=== PATIENT | female | born 1955 ===

== ENCOUNTER 2025-01-28 13:22 | Observation (INO) | payer MEDICARE ==
[~2025-01-28] VITALS: Ht 157.5 cm; Wt 69.7 kg
[2025-01-28 14:53] LABS: BASOPHILS ABSOLUTE AUTO 0.13 K/mm3 (0.00-0.23); BASOPHILS PERCENT AUTO 1 % (0-2); EOSINOPHILS ABSOLUTE AUTO 0.04 K/mm3 (0.00-0.68); EOSINOPHILS PERCENT AUTO 0 % (0-6); Hemoglobin 12.1 g/dL (11.5-16.0); IMMATURE GRAN ABSOLUTE AUTO 0.54 K/mm3 (0.00-0.10); IMMATURE GRAN PERCENT AUTO 3 % (0-1); LYMPHOCYTES ABSOLUTE AUTO 1.83 K/mm3 (0.84-5.20); LYMPHOCYTES PERCENT AUTO 9 % (21-46); MONOCYTES ABSOLUTE AUTO 1.26 K/mm3 (0.16-1.47); MONOCYTES PERCENT AUTO 6 % (4-13); Mean Platelet Volume 9.2 fL (9.1-12.4); NEUTROPHILS ABSOLUTE AUTO 16.13 K/mm3 (1.96-9.15); NEUTROPHILS PERCENT AUTO 81 % (41-73); NRBC ABSOLUTE 0.04 K/mm3 (0.00-0.02); NRBC Auto 0.2 /100 WBC (0.0-0.2); Platelet Count 368 K/mm3 (150-400); White Blood Cell Count 19.93 K/mm3 (4.00-11.30)
[2025-01-28 15:11] LABS: Magnesium, Blood 2.8 mg/dL (1.6-2.4)
[2025-01-28 15:23] LABS: Albumin, Blood 1.8 g/dL (3.4-5.0); Albumin/Globulin Ratio 0.4 (0.8-1.8); Bun/Creatinine Ratio 27.6 (12.0-20.0); Calcium, Blood 10.6 mg/dL (8.5-10.1); Creatinine, Blood 1.99 mg/dL (0.40-1.00); Globulin, Blood 4.3 g/dL (2.2-4.0); Phosphorus, Blood 5.1 mg/dL (2.5-4.9); Potassium, Blood 6.2 mmol/L (3.5-5.5); Total Protein, Blood 6.1 g/dL (6.4-8.2)
[2025-01-28] MEDS ORDERED: NS 1,000 ML IV SCH (15:50)
[2025-01-28 15:58] LABS: Hematocrit 41.5 % (33.0-51.0); Mean Corpuscular HGB 24.2 pg (26.0-34.0); Mean Corpuscular HGB Conc 29.2 g/dL (31.5-36.5); Mean Corpuscular Volume 83 fL (80-100); Red Blood Cell Count 4.99 M/mm3 (3.80-5.20)
[2025-01-28 16:02] LABS: Source, Urine Clean Catch
[2025-01-28 16:06] LABS: Appearance, Urine Cloudy (Clear); Blood, Urine 1+ (Neg); Glucose Qualitative, Urine Neg (Neg); Ketones, Urine 1+ (Neg); Leukocyte Esterase, Urine 1+ (Neg); Nitrite, Urine Neg (Neg); Protein, Urine 2+ (Neg); Specific Gravity, Urine 1.025 (1.003-1.022); Urobilinogen, Urine 3+ (Normal)
[2025-01-28 16:14] LABS: Bilirubin, Urine 2+ (Neg); Color, Urine Amber (P-Yellow)
[2025-01-28 16:16] LABS: Amorphous Light (0-Heavy); Bacteria Many /hpf; Hyaline Casts 0-2 /lpf (0-2); Red Blood Cells, Urine 0-2 /hpf (0-2); Squamous Epithelial Cells Few /hpf (Few); White Blood Cells, Urine 0-2 /hpf (0-5)
[2025-01-28] MEDS ORDERED: CefTRIAXone Sodium 1,000 MG in NS 100 ML IV ONE (17:45)
[2025-01-28] MEDS ORDERED: Scopolamine Hydrobromide Patch TOP PRN (19:25)
[2025-01-28] MEDS ORDERED: Promethazine HCl 25 MG Tab PO PRN (19:25)
[2025-01-28] MEDS ORDERED: FLU VACC TS2024-25(6MOS UP)/PF 45 MCG/0.5 ML SYRINGE IM ONE (19:25)
[2025-01-28] MEDS ORDERED: Atropine Sulfate 1% Opth Soln 2ML BTL SL PRN (19:25)
[2025-01-28] MEDS ORDERED: Morphine Sulfate 20 MG/1ML 1 ML Oral Syringe SL PRN (19:25)
[2025-01-29] MEDS ORDERED: Promethazine HCl 25 MG Tab PO PRN (02:05)
--- NOTE | 2025-01-29 06:18 | NUR ---
ADMIT AND SUMMARY: REPORT RECEIVED FROM MNAOJ (CLERK GENERAL OFFICE) AND PT T/F VIA RNEY TO ROOM 359 AT 0115. SHE'S A/OX4 BUT MILDLY FORGETFUL W/BED ALARM ON FOR FALL RISK. PT AWARE OF LIMITATIONS AND ADMITS TO PROGRESSIVE DECONDITIONING AND BEING BEDREST FOR SEVERAL WEEKS. ABDO IS DISTENDED BUT SOFT AND NONTENDER BUT PT HAD X1 EPISODE NAUSEA W/EMESIS, PHENERGAN RECEIVED FOR TOLERABLE RELIEF. SHE'S INCONTINENT OF BOWEL/BLADDER W/ATTENDS CHANGED PRN AND PUREWIC PLACED FOR INABILITY TO TOLERATE BEDPAN OR BSC USE. UTI PROBABLE AND 1L NS AND IV ABX WERE RECEIVED IN ER. PT DENIED PAIN/COMPLAINTS AND IS ADMITTED FOR POSSIBLE PLACEMENT BEING NEEDED, PALLIATIVE CARE AND HOSPICE REFERRALS PENDING. NO ACUTE CHANGES. WCTM AND REPORT TO DAY RN.
--- NOTE | 2025-01-29 16:10 | NUR ---
SPiritual Care visit. Pt. is somnolent but still welcomed my visit. Pt. verbalized a lack of memory. Prayed with the Pt. Pt. verbalized gratitude for the spiritual carfe visit.
--- NOTE | 2025-01-29 17:16 | NUR ---
SUMMARY COMFORT CARE PATIENT STATES SHE JUST WANTS TO . DENIES HAVING ANY PAIN. WAS HAVING SOME NAUSEA THIS MORNING BUT NO EMESIS AND DENIED NEED FOR NAUSEA MEDSICATION. COUSIN FRANCISCO CAME TO VISIT AND WROTE HER CONTACT INFO ON THE BOARD. REFERRED TO CASE MANAGEMENT SHE HAD QUESTIONS I COULDNT ANSWER. REPOSITIONING PATIETNT IN BED.
--- NOTE | 2025-01-30 06:17 | NUR ---
SUMMARY: PT REMAINS ON COMFORT MEASURES, SLEEPING MAJORITY OF NOCTE AND HAS POOR PO INTAKE DESPITE ENCOURAGEMENT. SHE REPORTS DESIRE TO AND DENIES PAIN, NAUSEA AND ALL OTHER COMPLAINTS. NO PRN MEDS REQUIRED THIS SHIFT. SHE HAD PUREWIC IN PLACE BUT CONT'S W/NO UO SO IT WAS DC'D. BLADDER SCAN PERFORMED W/NO URINE RETENTION OBSERVED AND ATTENDS CHANGED PRN FOR STOOL INCONTINTENCE. LEGS REMAIN EDEMATOUS AND ELEVATED IN BED W/TURN SCHEDULE MAINTAINED. NO ACUTE CHANGES. HOSPICE REFERRAL PENDING. COLLEEN AND REPORT TO DAY RN.
[2025-01-30] MEDS ORDERED: FOLI1 PO (19:04)
[2025-01-30] MEDS ORDERED: REMERON1510 PO (19:04)
[2025-01-30] MEDS ORDERED: PROCARDIA XL90 MG PO (19:05)
[2025-01-30] MEDS ORDERED: LISI20 PO (19:05)
[2025-01-30] MEDS ORDERED: Potassium Chlo20 ME1 PO (19:06)
--- NOTE | 2025-01-31 05:31 | NUR ---
SHIFT SUMMARY PT ALERT TO SELF AND WHY SHES HERE SHE IS A COMFORT CARE PT AND HAS BEEN REFUSING TO EAT AND DRINKS ONLY SMALL AMOUNTS. SHE PREFERS TO BE LEFT ALONE AND NOT BE BOTHERED. SHES INC OF B&B WEARS BRIEFS. SHES TURNED Q2HR. NO C/O N/V AND DENIES PAIN. SHE REMAINS ON BEDREST. SHE HAS ORDERS FOR HOSPICE. SHES RESTING AT THIS TIME WITH CALL LIGHT IN REACH
--- NOTE | 2025-01-31 07:53 | NUR ---
pt laying in bed awake, a/o to self, thinks her gown is wet, it isn't, reassured her, follows commands, needs direction, lungs are clear dim in bases, resp even and unlabored, no cough noted, on r/a, hrr, 3-4 + edema noted to b/l le, skin is pale, c/w/d, bt hypoactive, abd soft flat nontender, incont, briefs in place, moves arms, weak, aurelia, call light in reach.
--- NOTE | 2025-01-31 19:00 | NUR ---
Pt is refusing food, gave her an icecream this afternoon, she said she would take that, but she may have gotton two bites in, had a bed bath and has been turned every two hrs, with brief change as needed. call light in reach.
--- NOTE | 2025-02-01 03:08 | NUR ---
SHIFT SUMMARY/COMFORT CARE NO ACUTE CHANGES DURING THIS SHIFT. PT RESTING T/O THIS SHIFT. RR EVEN, UNLABORED. PT DENIES PAIN AND DISCOMFORT. REPOSITIONED IN BED T/O THIS SHIFT. BED AT THE LOWEST POSITION, CALL LIGHT W/I REACH. FREQUENT CHECKS BY THE BEDSIDE.
--- NOTE | 2025-02-01 09:54 | NUR ---
Spiritual care visit conducted. Faviola (pt) is awake but does not seem fully alert. Pt speaks in a manner that is difficult to understand, as she has a tendency to trail off. It is evident that pt is tired and not totally receptive to conversation. Pt was polite yet terse with her responses. Prayed with pt and promptly left to allow her to get further rest.
--- NOTE | 2025-02-01 17:11 | NUR ---
SHIFT SUMMARY: PATIENT ON COMFORT CARE; SHE HAS REMAINED IN BED, FOOD INTAKE IS POOR, BUT DOES DRINK WATER. SHE REPORTED 10/10 PAIN EARILER TODAY AND WAS MEDICATED WITH ROXANOL, HAS BEEN RESTING/SLEEPING SINCE ADMINISTRATION OF MEDICATION; SHE IS AROUSABLE, RESP EVEN AND UNLABORED,PATIENT APPEARS COMFORTABLE. BEING TURNED Q2HRS, CALL LIGHT WITHIN REACH, BED ALARM ON, NO SIGNS OR SYMPTOMS OF DISTRESS, PLAN OF CARE ONGOING.
--- NOTE | 2025-02-02 04:41 | NUR ---
SHIFT SUMMARY NOC PT A/O TO SELF. LETHARGIC AND SLEPT ENTIRETY OF SHIFT, EXCEPT WHEN Q2H TURNS AND FELL BACK ASLEEP. PT INC OF URINE X 2. PT ON COMFORT CARE MEASURES. PT AWAITING HOSPICE PLACEMENT. PT CURRENTLY RESTING WITH BED ALARM ON, BED IN LOWEST POSITION, AND CALL LIGHT WITHIN REACH.
[2025-02-02] MEDS ORDERED: LORazepam 1 MG Tab PO PRN (16:45)
[2025-02-02] MEDS ORDERED: Acetaminophen 650 MG Supp PR PRN (16:45)
--- NOTE | 2025-02-02 16:54 | NUR ---
COULD HEAR PATIENT MOANING/GROANING/CRYING OUT FROM [address]; ASSESSED PATIENT APPEARED IN DISTRESS/PAIN. 10 MG OF ROXANOL GIVEN WITHOUT IMPROVEMENT; CONSULTED PALLATIVE CARE REGUARDING ORDERS. THEY CONTACTED THE PROVIDER. THEY CAME AND SAW THE PATIENT EXPECTATIONS THAT THE PATIENT IS IMMINENT. ADVISED TO GIVE AN ADDITIONAL DOSE OF 10 MG OF ROXANOL AND 1 MG OF ATIVAN THAT WAS ORDERED. MEDICATIONS ADMINISTERED; PATIENT CONTINUES TO MOAN AND GROAN; BREATHES ARE LABORED, SWALLOW, GASPING. PATIENT GAZE LOOK IN EYES; APPEARS TO BE FLAPPING HER ARMS ATTEMPING TO REACH HER HEAD. PATIENT DISPLAYS AMMONIA SMELL FROM HER BREATH.
--- NOTE | 2025-02-02 17:59 | NUR ---
PT ACTIVELY DYING. ASSISTED BEDSIDE RN WITH MEDICATION MANAGEMENT. CONTINUES WITH LABORED BREATHING, INCREASE ROXANOL TO 20MG Q 1 HOUR UNTIL BREATHING NON-LABORED.
--- NOTE | 2025-02-02 18:15 | NUR ---
SHIFT SUMMARY: PATIENT IS NO LONGER RESPONSIVE; EYES DO OPEN, BUT BLANK GAZE. SHE WILL MOAN OUT, AND MOVE EXTREMITIES. MEDICATING PER EMAR TO KEEP PATIENT COMFORTABLE. Q2HR TURNS, DRESSING APPLIED TO COCCYX,PAIN JAUDICE OR SKIN AND EYES;BREATH SMELLS OF AMMONIA. SHE IS RESTING; BREATHS RAPID, SWALLOWING, AND MAKING MOANS ON EXHALE, PATIENT'S EYES ARE CLOSED; APPEARS MORE COMFORTABLE THAN BEFORE. SEE OTHER NURSE NOTES. PLAN OF CARE ONGOING.
--- NOTE | 2025-02-02 22:11 | NUR ---
PT COUSIN FRANCISCO DELAROSA IN [place] NOTIFIED OF PT PASSING. PT HAS NO OTHER FAMILY AND THEY SAID PT REQUESTED CRE[facility] AND [facility]. 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
--- NOTE | 2025-02-03 01:39 | NUR ---
[facility] PICKED UP PT @ [address] WIT ALL BELONGINGS.
== END 2025-02-03 01:20 ==
LOC: ER 13:22 → ERHOLD 13:23 → MEDS 13:23
PROVIDERS: Student in an Organized Health Care Education/Training Program; ADMIT Internal Medicine
DX: R62.7 Adult failure to thrive (principal); R53.1 Weakness; Z51.5 Encounter for palliative care; N17.9 Acute kidney failure, unspecified; E87.5 Hyperkalemia; C18.0 Malignant neoplasm of cecum; C78.7 Secondary malignant neoplasm of liver and intrahepatic bile duct; D72.829 Elevated white blood cell count, unspecified; E11.9 Type 2 diabetes mellitus without complications; D50.9 Iron deficiency anemia, unspecified; Z66 Do not resuscitate
CPT/HCPCS: 71045; 80053; 81001; 83735; 84100; 84132; 85025; 87086; 93005; 93010; 96361; 96365; 99285-25; A9270; G0378; J0696; J7030